=== PATIENT | female | born 1995 | race Hispanic/Latino ===

== ENCOUNTER 2024-08-19 12:03 | Inpatient (IN) | payer MEDICAID ==
[2024-08-19] MEDS ORDERED: Piperacillin/Tazobactam 2.25 GM VIAL ONE (12:36)
[2024-08-19 13:13] LABS: #Basophils 0.05 10x3/uL (0.0-0.2); #Monocytes 1.21 10x3/uL (0.0-1.1); #Neutrophils 18.16 10x3/uL (1.5-8.4); %Basophils 0.2 % (0.0-2.0); %Lymphocytes 7.1 % (18.0-47.0); %Monocytes 5.8 % (0.0-10.0); %Neutrophils 86.5 % (40.0-75.0); Hematocrit 40.9 % (34.9-44.5); Hemoglobin 14.5 g/dL (12.0-15.5); Mean Corpuscular HGB CONC 35.5 g/dL (32.0-36.0); Mean Corpuscular Hemoglobin 28.7 pg (27.0-33.0); Mean Corpuscular Volume 80.8 fL (81.6-98.3); Mean Platelet Volume 9.4 fL (7.4-10.4); Platelet Count 360 10x3/uL (150-450); Red Blood Cell (RBC) Count 5.06 10x6/uL (3.90-5.03)
[2024-08-19 13:19] LABS: ALT (SGPT) 38 U/L (8-55); AST (SGOT) 22 U/L (5-34); Albumin 3.4 g/dL (3.5-5.0); Alkaline Phosphatase 108 U/L (40-110); Anion Gap 14 mmol/L (10-20); BUN (Urea Nitrogen) 12 mg/dL (7.0-18.7); Bilirubin, Total 1.5 mg/dL (0.2-1.2); Calc. Creatinine Clearance 0 mL/min (70-130); Carbon Dioxide 21 mmol/L (22-29); Chloride 107 mmol/L (98-107); Estimated GFR 124; Globulin 3.3 g/dL (2.4-3.5); Glucose 108 mg/dL (70-105); Lipase 15 U/L (8-78); Magnesium 1.6 mg/dL (1.6-2.6); Potassium 4.2 mmol/L (3.5-5.1); Protein, Total 6.7 g/dL (6.0-8.3); Sodium 138 mmol/L (136-145)
[2024-08-19 13:27] LABS: Bilirubin Neg (Negative); Blood, Urine Negative (Negative); Clarity Clear (Clear); Glucose, Urine (Dipstick) Normal (Negative); Ketone, Urine 15 mg/dL (Negative); Leukocyte Negative (Negative); Nitrite Negative (Negative); Protein, Urine (Dipstick) Negative (Neg-Trace); Urobilinogen Normal mg/dL (Less than 2)
[2024-08-19 13:48] LABS: Bacteria/HPF 1+ HPF (None Seen); CAUTI Indications for Culture Pelvic or flank pain; RBC/HPF 0-3 HPF (0-3); Squamous Epithelial 0-3 HPF (0-3); Urine Culture Reflex No No; WBC/HPF 0-3 HPF (0-3)
[2024-08-19] MEDS ORDERED: Morphine 2 MG/ML VIAL SLOW IVP PRN ×2 (14:28→21:45)
[2024-08-19] MEDS ORDERED: Ondansetron PF 4 MG/2 ML Vial IVP PRN (14:29)
[2024-08-19] MEDS ORDERED: dilTIAZem 25 MG/5 ML VIAL ONE (16:05)
[2024-08-19 16:26] VITALS: BMI 21.9
[2024-08-19] MEDS: Sodium Chloride 0.9% 1,000 ML IV SCH (16:27)
[2024-08-19] MEDS: dilTIAZem 25 MG/5 ML VIAL SLOW IVP SCH (16:27)
[2024-08-19] MEDS: Lactated Ringer's 1,000 ML IV SCH ×2 (16:28→18:04)
[2024-08-19] MEDS: Piperacillin/Tazobactam 3.375 GM in Sodium Chloride 0.9% 100 ML IVPB SCH ×2 (16:28→18:03)
[2024-08-19] MEDS ORDERED: Dexamethasone 20 MG/5 ML VIAL ONE (16:53)
[2024-08-19] MEDS ORDERED: Ondansetron PF 4 MG/2 ML Vial ONE (16:54)
[2024-08-19] MEDS ORDERED: Hydrocortisone Sod Succ/PF 100 mg/2 ml Vial ONE (16:54)
[2024-08-19] MEDS ORDERED: Rocuronium Bromide 10 MG/ML (10ML VIAL) ONE (16:54)
[2024-08-19] MEDS ORDERED: SUCCINYLCHOLINE/SOD CL,ISO/PF 200 MG/10 ML SYRINGE FS ONE (16:54)
[2024-08-19] MEDS ORDERED: Midazolam HCl 2 mg/2 ml Vial ONE (16:55)
[2024-08-19] MEDS ORDERED: Lidocaine 2% PF 100 mg/5 ml Syringe ONE (16:55)
[2024-08-19] MEDS ORDERED: PROPOFOL 20 ML ONE (16:55)
[2024-08-19] MEDS ORDERED: Fentanyl 250 MCG/5 ML VIAL ONE (16:55)
[2024-08-19] MEDS ORDERED: Lidocaine 2% PF 5 ML VIAL ONE (16:55)
[2024-08-19] MEDS ORDERED: Potassium Iodide 1,000 MG/ML ORAL SOL PO SCH (17:00)
[2024-08-19] MEDS ORDERED: Bupivacaine HCl 0.5%/Epinephrine 1:200,000/PF 30 ml Vial ONE (17:04)
[2024-08-19 17:30] LABS: Free T4 (Free Thyroxine) 3.13 ng/dL (0.70-1.48)
[2024-08-19] MEDS ORDERED: Piperacillin/Tazobactam 3.375 GM VIAL ONE (17:47)
[2024-08-19] MEDS ORDERED: Vasopressin 20 UNITS/ML VIAL ONE (17:55)
[2024-08-19] MEDS ORDERED: Norepinephrine 4 MG/4 ML VIAL ONE (17:55)
[2024-08-19] MEDS ORDERED: Sodium Chloride 0.9% 250 ML 250 ML ONE (17:55)
[2024-08-19] MEDS ORDERED: Dexmedetomidine 200 MCG/2 ML VIAL ONE (18:52)
[2024-08-19] MEDS ORDERED: SUGAMMADEX SODIUM 200 MG/2 ML VIAL ONE (19:25)
[2024-08-19] MEDS ORDERED: Hydrocortisone Sod Succ/PF 100 mg/2 ml Vial IVP SCH (20:00)
[2024-08-19] MEDS ORDERED: Ibuprofen 200 MG TAB PO PRN (21:52)
[2024-08-19] MEDS: Clindamycin/D5W 900 MG in Premix 1 BAG IVPB SCH (22:52)
[2024-08-20] MEDS: Hydrocortisone Sod Succ/PF 100 mg/2 ml Vial IVP SCH (00:58)
[2024-08-20 04:09] LABS: #Basophils 0.02 10x3/uL (0.0-0.2); #Eosinphils 0.26 10x3/uL (0.0-0.5); #Monocytes 0.21 10x3/uL (0.0-1.1); %Basophils 0.2 % (0.0-2.0); %Eosinophils 2.1 % (0.0-6.0); %Monocytes 1.7 % (0.0-10.0); %Neutrophils 90.8 % (40.0-75.0); Hematocrit 36.7 % (34.9-44.5); Mean Corpuscular HGB CONC 35.4 g/dL (32.0-36.0); Mean Corpuscular Hemoglobin 28.9 pg (27.0-33.0); Mean Corpuscular Volume 81.6 fL (81.6-98.3); Mean Platelet Volume 9.5 fL (7.4-10.4); Platelet Count 343 10x3/uL (150-450); RBC Distribution Width 12.5 % (11.5-14.5); White Blood Cell (WBC) Count 12.3 10x3/uL (3.5-10.5)
[2024-08-20 04:24] LABS: ALT (SGPT) 27 U/L (8-55); AST (SGOT) 16 U/L (5-34); Albumin 2.9 g/dL (3.5-5.0); Alkaline Phosphatase 96 U/L (40-110); Anion Gap 21 mmol/L (10-20); BUN (Urea Nitrogen) 10 mg/dL (7.0-18.7); Bilirubin, Total 2.5 mg/dL (0.2-1.2); Calc. Creatinine Clearance 132 mL/min (70-130); Calcium 8.6 mg/dL (7.8-10.44); Carbon Dioxide 15 mmol/L (22-29); Chloride 105 mmol/L (98-107); Estimated GFR 125; Globulin 3.1 g/dL (2.4-3.5); Glucose 116 mg/dL (70-105); Potassium 3.8 mmol/L (3.5-5.1); Sodium 137 mmol/L (136-145)
[2024-08-20 04:36] LABS: Thyroid Stimulating Hormone Less than 0.0025 uIU/mL (0.35-4.94)
[2024-08-20] MEDS: Propylthiouracil 50 MG TAB PO SCH (06:08)
[2024-08-20] MEDS: Labetalol HCl 100 MG TAB PO SCH (06:09)
[2024-08-20] MEDS ORDERED: Potassium Iodide 1,000 MG/ML ORAL SOL PO SCH (08:00)
[2024-08-20] MEDS: Potassium Iodide 1,000 MG/ML ORAL SOL PO SCH (09:52)
[2024-08-20] MEDS: Lactated Ringer's 1,000 ML IV SCH (09:59)
[2024-08-20 11:08] LABS: Amphetamine Not Detected (NotDetected); Barbiturates Screen Not Detected (NotDetected); Benzodiazepine Screen Not Detected (NotDetected); Cocaine Metabolite Screen Detected (NotDetected); Methadone Not Detected (NotDetected); Methamphetamine Not Detected (NotDetected); Opiate Screen Not Detected (NotDetected); Oxycodone Screen Not Detected (NotDetected); Phencyclidine (PCP) Not Detected (NotDetected); THC/Cannabinoid Screen Detected (NotDetected); Tricyclic Screen Not Detected (NotDetected)
[2024-08-20 13:08] LABS: CRP,High Sensitivity (Inhouse) 4.91 mg/dL (< or = 0.5)
[2024-08-20] MEDS: HYDROcodone/Acetaminophen 5/325 mg Tablet PO PRN (17:54)
[2024-08-20] MEDS: dilTIAZem 25 MG/5 ML VIAL SLOW IVP SCH (17:56)
[2024-08-21] MEDS: Hydrocortisone Sod Succ/PF 100 mg/2 ml Vial IVP SCH (09:28)
[2024-08-21] MEDS: Methimazole 5 MG TAB PO SCH (09:30)
[2024-08-21] MEDS: Propranolol HCl 20 MG TAB PO SCH (09:30)
[2024-08-22 09:19] VITALS: BP 124/77; TEMP 98.8
== END 2024-08-22 09:15 | disposition home or self-care (01) | DRG 742 ==
LOC: CSHERS 12:03 → CSHERHOLD 14:27 → CSHPP 19:42 → CSHTELE 22:49
PROVIDERS: ADMIT Obstetrics & Gynecology; ATTEND Obstetrics & Gynecology
PROC: 0UT14ZZ Resection of Left Ovary, Percutaneous Endoscopic Approach (ICD-10-PCS; principal; 2024-08-19)
PROC: 0UT64ZZ Resection of Left Fallopian Tube, Percutaneous Endoscopic Approach (ICD-10-PCS; 2024-08-19)
PROC: 0W9J4ZZ Drainage of Pelvic Cavity, Percutaneous Endoscopic Approach (ICD-10-PCS; 2024-08-19)
DX: N80.122 Deep endometriosis of left ovary (principal); E05.91 Thyrotoxicosis, unspecified with thyrotoxic crisis or storm; K66.1 Hemoperitoneum; R65.10 Systemic inflammatory response syndrome (SIRS) of non-infectious origin without acute organ dysfunction; F17.290 Nicotine dependence, other tobacco product, uncomplicated; F41.9 Anxiety disorder, unspecified; F32.A Depression, unspecified; N70.93 Salpingitis and oophoritis, unspecified; F12.10 Cannabis abuse, uncomplicated; N73.9 Female pelvic inflammatory disease, unspecified; F14.10 Cocaine abuse, uncomplicated; Z91.148 Patient's other noncompliance with medication regimen for other reason; Z79.899 Other long term (current) drug therapy
CPT/HCPCS: 36415; 51702; 71045; 74177; 76856; 80053; 80306; 81001; 83605; 83690; 83735; 84436; 84439; 84443; 84481; 84703; 85025; 86141; 86850; 86900; 86901; 87040; 87070; 87086; 87205; 88305; 93005; 93010; 93306; 96361; 96365; 96374; 96375; J0692; J1100; J1720; J2001; J2250; J2272; J2405; J2543; J2704; J3010; J3370; J3370-JW; J3490; J7030; J7050; J7120; Q9967